=== PATIENT | male | born 1950 | race Caucasian/White ===

== ENCOUNTER 2020-12-13 09:31 | Emergency (ER) | payer MEDICARE ==
[2020-12-13 10:05] LABS: Bilirubin Negative (Negative); Blood, Urine Negative (Negative); Clarity Clear (Clear); Glucose, Urine (Dipstick) Negative (Negative); Ketone, Urine Negative (Negative); Leukocyte Negative (Negative); Nitrite Negative (Negative); Protein, Urine (Dipstick) Negative (Neg-Trace); Specific Gravity, Urine 1.015 (1.005-1.030); Urobilinogen 0.2 mg/dL (Less than 2)
[2020-12-13] MEDS ORDERED: Boostrix 0.5 ML (Tdap) VIAL ONE (10:35)
[2020-12-13 22:13] LABS: SARS-CoV-2 PCR by NAA Not Detected (NotDetected)
== END 2020-12-13 10:46 | disposition home or self-care (01) ==
LOC: BURERS 09:31
DX: S50.11XA Contusion of right forearm, initial encounter (principal); J06.9 Acute upper respiratory infection, unspecified; E78.5 Hyperlipidemia, unspecified; Z20.822 Contact with and (suspected) exposure to COVID-19; Z23 Encounter for immunization; W22.8XXA Striking against or struck by other objects, initial encounter
CPT/HCPCS: 81003; 90471; 90715; 99283; U0003; U0005

== ENCOUNTER 2020-12-21 17:38 | Emergency (ER) | payer MEDICARE ==
[2020-12-22 17:57] LABS: SARS-CoV-2 PCR by NAA Not Detected (NotDetected)
== END 2020-12-21 18:45 | disposition home or self-care (01) ==
LOC: BURERS 17:38
DX: B34.9 Viral infection, unspecified (principal); Z20.822 Contact with and (suspected) exposure to COVID-19; Z79.899 Other long term (current) drug therapy; E78.00 Pure hypercholesterolemia, unspecified
CPT/HCPCS: 87804; 99283; U0003; U0005

== ENCOUNTER 2021-04-18 20:45 | Emergency (ER) | payer MEDICARE ==
[~2021-04-18 20:45] MED LIST: Iopamidol 370 76% 100 ML VIAL ONE
[2021-04-18] MEDS ORDERED: Acetaminophen 500 MG TAB ONE (21:13)
[2021-04-18] MEDS ORDERED: Ibuprofen 800 MG TAB ONE (21:13)
[2021-04-18 21:27] LABS: Bilirubin Small (Negative); Blood, Urine Trace (Negative); Clarity Clear (Clear); Glucose, Urine (Dipstick) Negative (Negative); Ketone, Urine Trace mg/dL (Negative); Leukocyte Trace (Negative); Nitrite Negative (Negative); Protein, Urine (Dipstick) 100 mg/dL (Neg-Trace); Specific Gravity, Urine 1.025 (1.005-1.030); Urobilinogen 0.2 mg/dL (Less than 2)
[2021-04-18 21:31] LABS: Hemoglobin 16.7 g/dL (14.0-18.0); Mean Corpuscular HGB CONC 35.4 g/dL (32.0-36.0); Mean Corpuscular Hemoglobin 32.4 pg (27.0-31.0); Mean Corpuscular Volume 91.5 fL (78.0-98.0); Mean Platelet Volume 9.1 fL (7.4-10.4); Platelet Count 241 thou/uL (130-400); RBC Distribution Width 11.8 % (11.5-14.5); Red Blood Cell (RBC) Count 5.15 mill/uL (4.70-6.10); White Blood Cell (WBC) Count 10.7 thou/uL (4.8-10.8)
[2021-04-18 21:45] LABS: ALT (SGPT) 127 U/L (8-55); AST (SGOT) 91 U/L (5-34); Alkaline Phosphatase 51 U/L (40-110); Anion Gap 14 mmol/L (10-20); BUN (Urea Nitrogen) 14 mg/dL (8.4-25.7); Bilirubin, Total 0.9 mg/dL (0.2-1.2); Calc. Creatinine Clearance 0 mL/min (70-130); Calcium 8.9 mg/dL (7.8-10.44); Carbon Dioxide 25 mmol/L (23-31); Chloride 102 mmol/L (98-107); Globulin 2.4 g/dL (2.4-3.5); Glucose 119 mg/dL (80-115); Lipase 5 U/L (8-78); Potassium 3.3 mmol/L (3.5-5.1); Protein, Total 6.4 g/dL (5.8-8.1); Sodium 138 mmol/L (136-145)
[2021-04-18 21:57] LABS: Band 10 % (5-11); Lymphocytes 8 % (21-51); MDiff Complete? YES; Monocytes 5 % (0-10); Neutrophil 77 % (42-75); Platelet Morphology Comment Appears Adequate; RBC Morphology Normal
[2021-04-18 22:15] LABS: Bacteria/HPF Rare-Few HPF (None Seen); Squamous Epithelial None Seen HPF (0-3); WBC/HPF 0-3 HPF (0-3)
== END 2021-04-18 22:40 | disposition home or self-care (01) ==
LOC: BURERS 20:45
DX: A08.4 Viral intestinal infection, unspecified (principal)
CPT/HCPCS: 71046; 74177; 80053; 81003; 81015; 83605; 83690; 84484; 85025; 87040; 93005; 94760; Q9967

== ENCOUNTER 2023-12-27 13:50 | Emergency (ER) | payer MEDICARE, OTHER ==
[2023-12-27] MEDS ORDERED: Lidocaine 1%/Epinephrine 1:100K 10 ML VIAL ONE (14:03)
[2023-12-27] MEDS ORDERED: Bacitracin 1 PK ONE (14:03)
== END 2023-12-27 14:33 | disposition home or self-care (01) ==
LOC: BURERS 13:50
DX: S01.01XA Laceration without foreign body of scalp, initial encounter (principal); E78.00 Pure hypercholesterolemia, unspecified; W01.198A Fall on same level from slipping, tripping and stumbling with subsequent striking against other object, initial encounter; Y93.89 Activity, other specified; Y92.69 Other specified industrial and construction area as the place of occurrence of the external cause; Z79.899 Other long term (current) drug therapy
CPT/HCPCS: 12002; 99283

== ENCOUNTER 2025-02-08 10:57 | Emergency (ER) | payer MEDICARE, OTHER | END 2025-02-08 11:25 | disposition home or self-care (01) | LOC: BURERS 10:57 | DX: M79.5 Residual foreign body in soft tissue (principal); E78.5 Hyperlipidemia, unspecified; Z79.899 Other long term (current) drug therapy | CPT/HCPCS: 99283 ==